=== PATIENT | male | born 1965 | race Caucasian/White ===

== ENCOUNTER 2019-04-28 10:01 | Outpatient (CLI) | payer BC ==
[2019-04-28 12:52] LABS: Basophils # (Auto) 0.1 K/mm3 (0.0-0.1); Eosinophils # (Auto) 0.3 K/mm3 (0.0-0.4); Eosinophils % (Auto) 6.8 % (0.0-4.3); Hematocrit 47.3 % (35.5-45.6); Hemoglobin 16.2 gm/dl (11.8-15.2); Lymphocytes # (Auto) 1.8 K/mm3 (1.2-5.4); Lymphocytes % (Auto) 35.6 % (13.4-35.0); Mean Corpuscular HGB Conc 34 % (32-34); Mean Corpuscular Volume 95 fl (84-94); Monocytes # (Auto) 0.3 K/mm3 (0.0-0.8); Monocytes % (Auto) 6.9 % (0.0-7.3); Platelet Count 311 K/mm3 (140-440); Red Blood Count 4.99 M/mm3 (3.65-5.03); Red Cell Distribution Width 13.5 % (13.2-15.2)
[2019-04-28 13:45] LABS: Alanine Aminotransferase 38 units/L (7-56); Albumin 4.7 g/dL (3.9-5); BUN/Creatinine Ratio 16; Blood Urea Nitrogen 11 mg/dL (9-20); Calcium 9.9 mg/dL (8.4-10.2); Chol/HDL Ratio 5.51 %; HDL Cholesterol 39 mg/dL (40-59); Hemolysis Index 6; LDL Cholesterol,Direct 131 mg/dL (50-130)
[2019-05-02 16:45] LABS: Vitamin D, 25-OH, D2 <4 ng/mL
== END 2019-04-28 10:02 | disposition home or self-care (01) ==
LOC: LAB 10:01
PROVIDERS: ATTEND Internal Medicine
DX: Z00.00 Encounter for general adult medical examination without abnormal findings (principal); Z13.1 Encounter for screening for diabetes mellitus; E78.5 Hyperlipidemia, unspecified; Z13.29 Encounter for screening for other suspected endocrine disorder; Z13.21 Encounter for screening for nutritional disorder; Z12.5 Encounter for screening for malignant neoplasm of prostate
CPT/HCPCS: 36415; 80053; 80061; 82306; 82607; 83036; 84153; 84443; 85025

== ENCOUNTER 2019-09-01 07:48 | Day surgery (SDC) | payer BC ==
[~2019-09-01 07:48] MED LIST: SODIUM CHLORIDE 0.9% 1000 ML 1,000 ML IV SCH
--- NOTE | 2019-09-01 08:43 | Anesthesia Consultation ---
Anesthesia Consult and Med Hx Date of service: 09/01/19 - Airway Anesthetic Teeth Evaluation: Good ROM Head & Neck: Adequate Mental/Hyoid Distance: Adequate Mallampati Class: Class II Intubation Access Assessment: Probably Good - Pulmonary Exam CTA: Yes - Cardiac Exam Cardiac Exam: RRR - Pre-Operative Health Status ASA Pre-Surgery Classification: ASA1 Proposed Anesthetic Plan: TIVA
--- NOTE | 2019-09-01 08:44 | Anesthesia Day of Surgery ---
Anesthesia Day of Surgery - Day of Surgery Patient Examined: Yes Patient H&P Reviewed: Yes Patient is NPO: Yes
[2019-09-01] MEDS ORDERED: propofoL 200 MG/20 ML VIAL IV ONE ×2 (10:19)
--- NOTE | 2019-09-01 10:48 | Procedure Note ---
Date of procedure: 09/01/19 Pre-op diagnosis: Colon Polyp Screening Post-op diagnosis: other (Normal Colon Mucosa (no colon Polyps or diverticular disease noted)/ Normal, Terminal Ileal Mucosa/ Mild to Moderate Internal hemorrhoid) Procedure: Screening Colonoscopy Anesthesia: MAC Surgeon: ADOLFO MEYERS Estimated blood loss: none Pathology: none Condition: stable
--- NOTE | 2019-09-01 11:13 | Operative Report ---
PROCEDURE: Colonoscopy. INDICATIONS: A 53-year-old gentleman in otherwise good health, who had a colonoscopy done as part of colon polyp screening. DESCRIPTION OF PROCEDURE: Procedure was done after getting informed consent with MAC anesthesia. Initial rectal exam was unremarkable. Instrument was passed through the rectum onto the cecum, which was identified by the ileocecal valve and appendiceal orifice. Visualization was fair to good. Terminal ileum was intubated showed normal mucosa. Cecum was also examined on the retroverted view. No additional pathology was noted. Cecum, ascending colon, transverse colon, descending colon, sigmoid as well as the rectum showed normal mucosa. There was no evidence of any polyps, colitis or diverticular disease. Rectum showed [id number] internal hemorrhoid on the retroverted view. There was no bleeding associated with the procedure. No complications associated with the procedure. ASSESSMENT: Colon polyp screening. No colon polyps noted. No diverticular disease noted. [id number] internal hemorrhoids. Normal terminal ileal mucosa. PLAN: Plan is to have the patient resume home medication. Follow up in the office in 1-2 weeks' time. Thank you for the kind referral. The procedure was done in the GI lab with assistance of the GI lab team, which included CHICHO Butt as well as Teressa gant and with assistance of anesthesia. JOB# [id number] SANJAY/KECIA
--- NOTE | 2019-09-01 11:17 | Post Anesthesia Evaluation ---
- Post Anesthesia Evaluation Patient Participated: Yes Airway Patent: Yes Stable Respiratory Function: Yes Nausea/Vomiting: No Temp > 96.8F: Yes Pain Manageable: Yes Adequeate Hydration: Yes Anesthesia Complications: No
[2019-09-01 11:56] VITALS: BP 125/78
== END 2019-09-01 07:49 | disposition home or self-care (01) ==
LOC: GIO 07:48
DX: Z12.11 Encounter for screening for malignant neoplasm of colon (principal); K64.8 Other hemorrhoids; Z90.49 Acquired absence of other specified parts of digestive tract; Z79.899 Other long term (current) drug therapy
CPT/HCPCS: 45378; J2704; J7030

== ENCOUNTER 2019-09-09 08:31 | Emergency (ER) | payer BC ==
[2019-09-09 08:36] VITALS: BP 145/93
--- NOTE | 2019-09-09 09:28 | Emergency Department Report ---
ED ENT HPI - General Chief complaint: Earache Stated complaint: LEFT EAR PAIN Time Seen by Provider: 09/09/19 08:54 Source: patient Mode of arrival: Ambulatory Limitations: No Limitations - History of Present Illness Initial comments: This is a 53-year-old male who presents to the emergency room with right ear pain for 2 days. Patient states it feels clogged and there is decreased hearing. Reports pain is worse when he get out of the shower. He denies using Q-tips or any other foreign object in the ear. He denies otorrhea, discharge, tinnitus, fever, or chills. MD complaint: ear pain (right) Onset/Timin -: days(s) Location: R ear Severity: moderate Severity scale (0 -10): 6 Quality: aching, other (Throbbing) Consistency: constant Improves with: none Worsens with: none Associated Symptoms: hearing loss. denies: fever, tinnitus, discharge from ear, rhinorrhea - Related Data Previous Rx's Medication Instructions Recorded Last Taken Type Ibuprofen [Motrin 600 MG tab] 600 mg PO Q8H PRN #30 tablet 04/08/18 Unknown Rx Amoxicillin [Trimox CAP] 500 mg PO BID #20 capsule 09/09/19 Unknown Rx Allergies Allergy/AdvReac Type Severity Reaction Status Date / Time No Known Allergies Allergy Unverified 04/07/18 20:37 ED Dental HPI - General Chief complaint: Earache Stated complaint: LEFT EAR PAIN Time Seen by Provider: 09/09/19 08:54 Source: patient Mode of arrival: Ambulatory Limitations: No Limitations - Related Data Previous Rx's Medication Instructions Recorded Last Taken Type Ibuprofen [Motrin 600 MG tab] 600 mg PO Q8H PRN #30 tablet 04/08/18 Unknown Rx Amoxicillin [Trimox CAP] 500 mg PO BID #20 capsule 09/09/19 Unknown Rx Allergies Allergy/AdvReac Type Severity Reaction Status Date / Time No Known Allergies Allergy Unverified 04/07/18 20:37 ED Review of Systems ROS: Stated complaint: LEFT EAR PAIN Other details as noted in HPI Constitutional: denies: chills, fever ENT: ear pain (Right ear). denies: throat pain, dental pain, hearing loss, epistaxis, congestion Respiratory: denies: cough, shortness of breath, wheezing Cardiovascular: denies: chest pain, palpitations Gastrointestinal: denies: abdominal pain, nausea, diarrhea Skin: denies: rash, lesions Neurological: denies: headache, weakness, paresthesias Psychiatric: denies: anxiety, depression ED Past Medical Hx - Past Medical History Previous Medical History?: Yes Additional medical history: elevated cholesterol - Surgical History Hx Cholecystectomy: Yes - Social History Smoking Status: Never Smoker Substance Use Type: None - Medications Home Medications: Home Medications Medication Instructions Recorded Confirmed Last Taken Type Ibuprofen [Motrin 600 MG tab] 600 mg PO Q8H PRN #30 tablet 04/08/18 Unknown Rx Amoxicillin [Trimox CAP] 500 mg PO BID #20 capsule 09/09/19 Unknown Rx ED Physical Exam - General Limitations: No Limitations General appearance: alert, in no apparent distress - ENT ENT exam: Present: normal orophraynx, mucous membranes moist. Absent: TM's normal bilaterally (Right TM cloudy, bulging, and immobile, TTP) - Respiratory Respiratory exam: Present: normal lung sounds bilaterally. Absent: respiratory distress - Cardiovascular Cardiovascular Exam: Present: regular rate, normal rhythm. Absent: systolic murmur, diastolic murmur, rubs, gallop - GI/Abdominal GI/Abdominal exam: Present: soft, normal bowel sounds - Extremities Exam Extremities exam: Present: normal inspection - Neurological Exam Neurological exam: Present: alert, oriented X3, normal gait - Psychiatric Psychiatric exam: Present: normal affect, normal mood - Skin Skin exam: Present: warm, dry, intact, normal color. Absent: rash ED Course Vital Signs 09/09/19 08:31 Temperature 98.6 F Pulse Rate 77 Respiratory 16 Rate Blood Pressure 145/93 O2 Sat by Pulse 99 Oximetry ED Medical Decision Making - Medical Decision Making This is a 53-year-old male that presents with right ear pain for 2 days. Patient is stable. Vitals normal. Exam and history most consistent with acute otitis media of right ear. I have a low suspicion at this time for mastoiditis, malignant otitis externa, herpes, or retained foreign body. Start amoxicillin, tylenol or ibuprofen for pain. Discussed plan with patient and he agreed with plan. Informed of signs and symptoms of allergic reaction and importance of giving benadryl immediately. Discharged home in stable condition with strict return instructions. Follow up with PCP in 24-72 hours. Critical care attestation.: If time is entered above; I have spent that time in minutes in the direct care of this critically ill patient, excluding procedure time. ED Disposition Clinical Impression: Otalgia of right ear Acute otitis media Qualifiers: Otitis media type: suppurative Laterality: right Recurrence: non-recurrent Spontaneous tympanic membrane rupture: without spontaneous rupture Qualified Code(s): H66.001 - Acute suppurative otitis media without spontaneous rupture of ear drum, right ear Disposition: TO HOME OR SELFCARE Is pt being admited?: No Condition: Stable Instructions: Otitis Media (ED) Additional Instructions: Give Tylenol or ibuprofen for pain every 6-8 hours. Take antibiotics as prescribed to avoid recurrence of the ear infection. Avoid high altitudes, may worsen the pain during ear infection. If symptoms do not improve within 2 to 3 days, then follow up with primary care doctor. Prescriptions: Amoxicillin [Trimox CAP] 500 mg PO BID #20 capsule Referrals: MARCELA MACK MD [Staff Physician] - 3-5 Days [facility] [Provider Group] - 3-5 Days [facility] [Outside] - 3-5 Days [facility] [Outside] - 3-5 Days Time of Disposition: 09:32
== END 2019-09-09 09:40 | disposition home or self-care (01) ==
LOC: ED 08:31
DX: H66.001 Acute suppurative otitis media without spontaneous rupture of ear drum, right ear (principal); E78.00 Pure hypercholesterolemia, unspecified; Z87.891 Personal history of nicotine dependence
CPT/HCPCS: 99282

== ENCOUNTER 2019-12-17 08:43 | Emergency (ER) | payer BC ==
--- NOTE | 2019-12-17 11:11 | Emergency Department Report ---
ED Chest Pain HPI - General Chief Complaint: Dyspnea/Respdistress Stated Complaint: SAUL Time Seen by Provider: 12/17/19 10:50 Source: patient Mode of arrival: Ambulatory Limitations: No Limitations - History of Present Illness Initial Comments: 53-year-old male with a past medical history of elevated cholesterol and previous cholecystectomy presents to the hospital complaining of shortness of breath and chest pain x4 days. Patient states symptoms are worse at night and has been unable to sleep. The last 3 to 4 days he was waking up every 3-4 hours with shortness of breath and chest pressure. Patient also feels like there is increased phlegm in his chest and throat but denies leg edema cough, fever, loss of sense of taste or smell, coronavirus exposure, has not been tested for coronavirus. Patient also denies chest pressure with exertion, nausea, vomiting, diaphoresis. Patient does not smoke cigarettes. 1 month ago his primary care doctor recommended that he have a sleep study test the patient has been unable to obtain the examination. Initial BP here today is elevated and patient denies a previous history of hypertension and has had previous BP measurements in normal range as per medical record. - Related Data Previous Rx's Medication Instructions Recorded Last Taken Type Ibuprofen [Motrin 600 MG tab] 600 mg PO Q8H PRN #30 tablet 04/08/18 Unknown Rx Amoxicillin [Trimox CAP] 500 mg PO BID #20 capsule 09/09/19 Unknown Rx Allergies Allergy/AdvReac Type Severity Reaction Status Date / Time No Known Allergies Allergy Unverified 04/07/18 20:37 Heart Score - HEART Score History: Slightly suspicious EKG: Normal Age: 45-65 Risk factors: 1-2 risk factors Troponin: < normal limit HEART Score: 2 ED Review of Systems ROS: Stated complaint: SAUL Other details as noted in HPI Comment: All other systems reviewed and negative ED Past Medical Hx - Past Medical History Previous Medical History?: Yes Additional medical history: elevated cholesterol - Surgical History Past Surgical History?: Yes Hx Cholecystectomy: Yes - Social History Smoking Status: Never Smoker Substance Use Type: None - Medications Home Medications: Home Medications Medication Instructions Recorded Confirmed Last Taken Type Ibuprofen [Motrin 600 MG tab] 600 mg PO Q8H PRN #30 tablet 04/08/18 Unknown Rx Amoxicillin [Trimox CAP] 500 mg PO BID #20 capsule 09/09/19 Unknown Rx ED Physical Exam - General Limitations: No Limitations - Other Other exam information: General: No acute distress Head: Atraumatic Eyes: normal appearance ENT: Moist mucous membranes, posterior pharynx normal without exudates, or edema Neck: Normal appearance, no midline tenderness Chest: Clear to auscultation bilaterally, mild rhonchi left chest few no wheezes, rales,. CV: Regular rate and rhythm Abdomen: Soft, normal bowel sounds, nontender, nondistended, no rebound or guarding Back: Normal inspection Extremity: Normal inspection, full range of motion, no calf tenderness or leg edema Neuro: Alert O x 3, no facial asymmetry, speech clear, no gross motor sensory deficit Psych: Appropriate behavior Skin: No rash ED Course Vital Signs 12/17/19 12/17/19 08:46 11:41 Temperature 97.6 F Pulse Rate 68 51 L Respiratory 16 16 Rate Blood Pressure 162/107 Blood Pressure 148/80 [Left] O2 Sat by Pulse 97 Oximetry TJ score - Tj Score Age > 65: (0) No Aspirin use within the Past 7 Days: (0) No 3 or more CAD Risk Factors: (0) No 2 or more Angina events in past 24 hrs: (0) No Known CAD with more than 50% Stenosis: (0) No Elevated Cardiac Markers: (0) No ST Deviation Greater than 0.5mm: (0) No TJ Score: 0 ED Medical Decision Making - Lab Data Result diagrams: 12/17/19 11:11 12/17/19 11:11 Lab Results 12/17/19 12/17/19 Range/Units 11:11 11:11 WBC 6.2 (4.5-11.0) K/mm3 RBC 4.69 (3.65-5.03) M/mm3 Hgb 15.5 H (11.8-15.2) gm/dl Hct 44.8 (35.5-45.6) % MCV 96 H (84-94) fl MCH 33 H (28-32) pg MCHC 35 H (32-34) % RDW 14.4 (13.2-15.2) % Plt Count 307 (140-440) K/mm3 Lymph % (Auto) 35.1 H (13.4-35.0) % [place] % (Auto) 6.4 (0.0-7.3) % Eos % (Auto) 4.1 (0.0-4.3) % Baso % (Auto) 0.9 (0.0-1.8) % Lymph # 2.2 (1.2-5.4) K/mm3 [place] # 0.4 (0.0-0.8) K/mm3 Eos # 0.3 (0.0-0.4) K/mm3 Baso # 0.1 (0.0-0.1) K/mm3 Seg Neutrophils % 53.5 (40.0-70.0) % Seg Neutrophils # 3.3 (1.8-7.7) K/mm3 Sodium 142 (137-145) mmol/L Potassium 4.3 (3.6-5.0) mmol/L Chloride 104.0 (98-107) mmol/L Carbon Dioxide 25 (22-30) mmol/L Anion Gap 17 mmol/L BUN 13 (9-20) mg/dL Creatinine 0.7 L (0.8-1.3) mg/dL Estimated GFR > 60 ml/min BUN/Creatinine Ratio 19 % Glucose 98 (75-100) mg/dL Calcium 9.6 (8.4-10.2) mg/dL Troponin T < 0.010 (0.00-0.029) ng/mL NT-Pro-B Natriuret Pep 33.15 (0-900) pg/mL - EKG Data -: EKG Interpreted by [facility] EKG shows normal: sinus rhythm, ST-T waves (no stemi) Rate: bradycardia (48) - Radiology Data Radiology results: report reviewed CHEST 2 VIEWS INDICATION / CLINICAL INFORMATION: sob. COMPARISON: None available. FINDINGS: SUPPORT DEVICES: None. HEART / MEDIASTINUM: No significant abnormality. LUNGS / PLEURA: No significant pulmonary or pleural abnormality. No pneumothorax. ADDITIONAL FINDINGS: No significant additional findings. IMPRESSION: No acute cardiopulmonary abnormality - Medical Decision Making Patient's ED work-up unremarkable with EKG only significant for sinus bradycardia without ischemic findings, normal chest x-ray, normal CBC, BMP, and negative troponin. Patient's BP improved spontaneously without intervention. Patient symptoms very atypical for ACS. He more or less complains of phlegm in his throat and waking up in the middle night while sleeping short of breath and feeling like something is stuck in his throat. He has been recommended to see a specialist to have an outpatient sleep study however, this has not been ryann roved by his insurance and therefore he came to the ED. He also states he has a coming schedule a tele-visit with his physician. At this time I have not identified any signs of airway obstruction, stridor, hypoxia, CAD, pneumonia, or infection. Patient is breathing comfortably without distress and does not endorse chest pain with exertion or dyspnea on exertion. Patient will be discharged home and encouraged to continue his outpatient work-up with his physician. Critical Care Time: No Critical care attestation.: If time is entered above; I have spent that time in minutes in the direct care of this critically ill patient, excluding procedure time. ED Disposition Clinical Impression: Atypical chest pain, Sleeping difficulties, Phlegm in throat Disposition: TO HOME OR SELFCARE Is pt being admited?: No Does the pt Need Aspirin: No Condition: Stable Instructions: Chest Pain (ED) Additional Instructions: It is very important that you follow-up with your physician to continue outpatient work-up for your suspected sleep apnea/difficulty breathing while sleeping. Keep your follow-up visit as scheduled this week. Return if symptoms worsen as indicated by your discharge instructions Es muy importante que malou un seguimiento con worley mdico para continuar el trabajo ambulatorio para worley sospecha de apnea del sueo/dificultad para respirar mientras duerme. Mantenga worley visita de seguimiento segn lo programado esta semana. Regrese si los sntomas empeoran segn lo indicado por las instrucciones de lolly Referrals: PRIMARY CAREMD [Primary Care Provider] - 3-5 Days Time of Disposition: 12:20 Print Language: ANDORRAN
--- NOTE | 2019-12-17 11:23 | XRay Report ---
CHEST 2 VIEWS INDICATION / CLINICAL INFORMATION: sob. COMPARISON: None available. FINDINGS: SUPPORT DEVICES: None. HEART / MEDIASTINUM: No significant abnormality. LUNGS / PLEURA: No significant pulmonary or pleural abnormality. No pneumothorax. ADDITIONAL FINDINGS: No significant additional findings. IMPRESSION: No acute cardiopulmonary abnormality. Signer Name: Wan Henry MD Signed: 12/17/2019 11:19 AM Workstation Name: [id number]
[2019-12-17 11:40] LABS: Basophils # (Auto) 0.1 K/mm3 (0.0-0.1); Basophils % (Auto) 0.9 % (0.0-1.8); Eosinophils # (Auto) 0.3 K/mm3 (0.0-0.4); Eosinophils % (Auto) 4.1 % (0.0-4.3); Hematocrit 44.8 % (35.5-45.6); Hemoglobin 15.5 gm/dl (11.8-15.2); Lymphocytes # (Auto) 2.2 K/mm3 (1.2-5.4); Lymphocytes % (Auto) 35.1 % (13.4-35.0); Mean Corpuscular HGB Conc 35 % (32-34); Mean Corpuscular Volume 96 fl (84-94); Monocytes # (Auto) 0.4 K/mm3 (0.0-0.8); Monocytes % (Auto) 6.4 % (0.0-7.3); Platelet Count 307 K/mm3 (140-440); Red Blood Count 4.69 M/mm3 (3.65-5.03); Red Cell Distribution Width 14.4 % (13.2-15.2)
[2019-12-17 11:41] VITALS: BP 148/80
[2019-12-17 12:07] LABS: BUN/Creatinine Ratio 19; Blood Urea Nitrogen 13 mg/dL (9-20); Calcium 9.6 mg/dL (8.4-10.2); Hemolysis Index 10
== END 2019-12-17 12:31 | disposition home or self-care (01) ==
LOC: ED 08:43
DX: R07.89 Other chest pain (principal); R06.01 Orthopnea; E78.00 Pure hypercholesterolemia, unspecified; Z90.49 Acquired absence of other specified parts of digestive tract
CPT/HCPCS: 36415; 71046; 80048; 83880; 84484; 85025; 93005

== ENCOUNTER 2020-01-05 08:53 | Outpatient (CLI) | payer BC ==
[2020-01-05 09:39] LABS: Chol/HDL Ratio 4.86 %
== END 2020-01-05 08:54 | disposition home or self-care (01) ==
LOC: LAB 08:53
PROVIDERS: ATTEND Internal Medicine
DX: E78.5 Hyperlipidemia, unspecified (principal); R73.03 Prediabetes
CPT/HCPCS: 36415; 80061; 83036

== ENCOUNTER 2020-03-26 07:44 | Emergency (ER) | payer BC ==
[2020-03-26 08:11] VITALS: BP 172/94
--- NOTE | 2020-03-26 09:25 | Emergency Department Report ---
ED General Adult HPI - General Chief complaint: Dyspnea/Respdistress Stated complaint: BREATHING PROBLEM Time Seen by Provider: 03/26/20 09:07 Source: patient Mode of arrival: Ambulatory Limitations: No Limitations - History of Present Illness Initial comments: Is a very pleasant 54-year-old male with a past medical history of hyperlipidemia and cholecystectomy who presents to the emergency department chief complaint of nasal congestion, sore throat and a feeling that his nose and throat were closing specifically when he lies down for bed. He reports this has been ongoing for greater than 6 months. He was seen in the ER in December for same complaint had a work-up that was unremarkable and subsequently referred to his primary care doctor. He states his primary care doctor then referred him to a sleep specialist as well as an ENT but his insurance lapsed and he was unable to follow-up for these tests. He reports he will wake up out of his sleep feeling as if he is having a hard time breathing. He will feel as his throat is hurting and is if it is closing. He also feels as if he lays on his left side his right nostril will start to close if he lays on his right side his left nostril started to close. He reports some nasal congestion. He reports increased phlegm in his throat. He denies any associated fever, chills, night sweats, headache, dizziness, blurry vision, nausea, vomit, diarrhea, chest pain, shortness of breath, weakness or any other associated symptoms. He denies any loss of taste or smell, diarrhea, coronavirus exposure. - Related Data Previous Rx's Medication Instructions Recorded Last Taken Type Ibuprofen [Motrin 600 MG tab] 600 mg PO Q8H PRN #30 tablet 04/08/18 Unknown Rx Amoxicillin [Trimox CAP] 500 mg PO BID #20 capsule 09/09/19 Unknown Rx Amoxicillin/Potassium Clav 1 each PO BID #14 tablet 03/26/20 Unknown Rx [Augmentin 875-125 Tablet] Omeprazole 20 mg PO DAILY #30 tab. 03/26/20 Unknown Rx methylPREDNISolone [Medrol 4MG 4 mg PO ONCE #1 tab.ds.pk 03/26/20 Unknown Rx DOSEPAK (21 tabs)] Allergies Allergy/AdvReac Type Severity Reaction Status Date / Time No Known Allergies Allergy Unverified 04/07/18 20:37 ED Review of Systems ROS: Stated complaint: BREATHING PROBLEM Other details as noted in HPI Comment: All other systems reviewed and negative Constitutional: denies: chills, fever Eyes: denies: eye pain, eye discharge, vision change ENT: as per HPI, throat pain, congestion. denies: ear pain Respiratory: denies: cough, shortness of breath, wheezing Cardiovascular: denies: chest pain, palpitations Endocrine: no symptoms reported Gastrointestinal: denies: abdominal pain, nausea, diarrhea Genitourinary: denies: urgency, dysuria Musculoskeletal: denies: back pain, joint swelling, arthralgia Skin: denies: rash, lesions Neurological: denies: headache, weakness, paresthesias Psychiatric: denies: anxiety, depression Hematological/Lymphatic: denies: easy bleeding, easy bruising ED Past Medical Hx - Past Medical History Previous Medical History?: Yes Additional medical history: elevated cholesterol - Surgical History Past Surgical History?: Yes Hx Cholecystectomy: Yes - Social History Smoking Status: Never Smoker Substance Use Type: None - Medications Home Medications: Home Medications Medication Instructions Recorded Confirmed Last Taken Type Ibuprofen [Motrin 600 MG tab] 600 mg PO Q8H PRN #30 tablet 04/08/18 Unknown Rx Amoxicillin [Trimox CAP] 500 mg PO BID #20 capsule 09/09/19 Unknown Rx Amoxicillin/Potassium Clav 1 each PO BID #14 tablet 03/26/20 Unknown Rx [Augmentin 875-125 Tablet] Omeprazole 20 mg PO DAILY #30 tab.rap.dr 03/26/20 Unknown Rx methylPREDNISolone [Medrol 4MG 4 mg PO ONCE #1 tab.ds.pk 03/26/20 Unknown Rx DOSEPAK (21 tabs)] ED Physical Exam - General Limitations: No Limitations General appearance: alert, in no apparent distress - Head Head exam: Present: atraumatic, normocephalic - Eye Eye exam: Present: normal appearance, PERRL, EOMI Pupils: Present: normal accommodation - ENT ENT exam: Present: normal exam, mucous membranes moist, TM's normal bilaterally, normal external ear exam. Absent: normal orophraynx (There is erythema the posterior pharynx with some postnasal drip, there is hyperemia to the nasal turbinates bilaterally.) - Neck Neck exam: Present: normal inspection, full ROM. Absent: tenderness, meningismus - Respiratory Respiratory exam: Present: normal lung sounds bilaterally. Absent: respiratory distress, wheezes, rales, rhonchi, stridor, accessory muscle use - Cardiovascular Cardiovascular Exam: Present: regular rate, normal rhythm, normal heart sounds. Absent: systolic murmur, diastolic murmur, rubs, gallop - GI/Abdominal GI/Abdominal exam: Present: soft, normal bowel sounds. Absent: distended, tenderness, guarding, rebound, rigid - Rectal Rectal exam: Present: deferred - Extremities Exam Extremities exam: Present: normal inspection, full ROM, normal capillary refill. Absent: tenderness, calf tenderness (No calf posterior tenderness bilaterally, negative Homans' sign bilaterally) - Back Exam Back exam: Present: normal inspection, full ROM. Absent: tenderness, CVA tenderness (R), CVA tenderness (L) - Neurological Exam Neurological exam: Present: alert, oriented X3, CN II-XII intact, normal gait - Psychiatric Psychiatric exam: Present: normal affect, normal mood - Skin Skin exam: Present: warm, dry, intact, normal color. Absent: rash ED Course Vital Signs 03/26/20 08:09 Temperature 97.9 F Pulse Rate 72 Respiratory 16 Rate Blood Pressure 172/94 O2 Sat by Pulse 99 Oximetry - Reevaluation(s) Reevaluation #1: 03/26/20 09:24 Patient is nontoxic in no acute distress. He is well-appearing. This is a chronic issue that has been ongoing for the past many months however he has been unable to see the specialist referred to for a sleep study. Clinically the patient's symptoms are consistent with a sinusitis with postnasal drip. I did order a chest x-ray and neck soft tissue x-ray. The patient had been seen previously and had an ischemic work-up due to his nonspecific complaints which was unremarkable. He has no chest pain, no shortness of breath and complains only feels as if he is having a hard time breathing because his throat has increased phlegm as well as in his nose. Suspect this could be secondary to environmental changes in the weather versus bacterial infection of the sinuses. ED Medical Decision Making - Radiology Data Radiology results: report reviewed, image reviewed XRay Report Signed Patient: MANJEET SNELL MR#: [id number] : 1965 Acct:[id number] Age/Sex: 54 / M ADM Date: 03/26/20 Loc: ED Attending Dr: Ordering Physician: ADRIANNE GARCIA Date of Service: 03/26/20 Procedure(s): XR neck soft tissue Accession Number(s): [id number] cc: ADRIANNE GARCIA Fluoro Time In Minutes: NECK SOFT TISSUE 2 VIEW(S) INDICATION / CLINICAL INFORMATION: throat pain COMPARISON: None available. FINDINGS: EPIGLOTTIS: No significant abnormality. RETROPHARYNGEAL SOFT TISSUES: No significant abnormality. AIRWAY: No significant abnormality. RADIOPAQUE FOREIGN BODY: None. SKELETAL SYSTEM: No significant abnormality. ADDITIONAL FINDINGS: None. IMPRESSION: 1. No significant abnormality. Signer Name: Mika Solis MD Signed: 03/26/2020 9:53 AM Workstation Name: [id number] Transcribed By: BRO Dictated By: Mika Solis MD Electronically Authenticated By: Mika Solis MD Signed Date/Time: 03/26/20 0953 XRay Report Signed Patient: MANJEET NSELL MR#: [id number] : 1965 Acct:[id number] Age/Sex: 54 / M ADM Date: 03/26/20 Loc: ED Attending Dr: Ordering Physician: ADRIANNE GARCIA Date of Service: 03/26/20 Procedure(s): XR chest routine 2V Accession Number(s): [id number] cc: ADRIANNE GARCIA Fluoro Time In Minutes: CHEST 2 VIEWS INDICATION / CLINICAL INFORMATION: shortness of breath. COMPARISON: Chest 2 views from 12/17/2019. FINDINGS: SUPPORT DEVICES: None. HEART / MEDIASTINUM: No significant abnormality. LUNGS / PLEURA: No significant pulmonary or pleural abnormality. No pneumothorax. ADDITIONAL FINDINGS: No significant additional findings. IMPRESSION: 1. No acute abnormality of the chest. Signer Name: Mika Solis MD Signed: 03/26/2020 9:43 AM Workstation Name: [id number] Transcribed By: BRO Dictated By: Mika Solis MD Electronically Authenticated By: Mika Solis MD Signed Date/Time: 03/26/20 0943 - Medical Decision Making Patient nontoxic in no acute distress. Vital signs are stable. His x-ray of his neck soft tissue and chest were unremarkable. I will treat him with short course of an oral steroid, short course of Augmentin for his sinuses and recommend that he follow-up with his primary care doctor. Instructed to return the emerge when he develops any change or worsening symptoms. He had no signs of any airway obstruction, no stridor, no increased work of breathing, vital signs and imaging was unremarkable. He verbalized understand the diagnosis, treatment plan and follow-up instructions all his questions were answered. - Differential Diagnosis Sinusitis, GERD, pharyngitis Critical care attestation.: If time is entered above; I have spent that time in minutes in the direct care of this critically ill patient, excluding procedure time. ED Disposition Clinical Impression: Sinusitis Qualifiers: Sinusitis location: frontal Chronicity: acute Recurrence: recurrent Qualified Code(s): J01.11 - Acute recurrent frontal sinusitis Disposition: TO HOME OR SELFCARE Is pt being admited?: No Condition: Stable Instructions: Sinusitis, Adult, [id number] Prescriptions: Amoxicillin/Potassium Clav [Augmentin 875-125 Tablet] 1 each PO BID #14 tablet methylPREDNISolone [Medrol 4MG DOSEPAK (21 tabs)] 4 mg PO ONCE #1 tab.ds.pk Omeprazole 20 mg PO DAILY #30 tab.rap.dr Referrals: MARCELA MACK MD [Staff Physician] - 3-5 Days Forms: Work/School Release Form(ED)
--- NOTE | 2020-03-26 09:47 | XRay Report ---
CHEST 2 VIEWS INDICATION / CLINICAL INFORMATION: shortness of breath. COMPARISON: Chest 2 views from 12/17/2019. FINDINGS: SUPPORT DEVICES: None. HEART / MEDIASTINUM: No significant abnormality. LUNGS / PLEURA: No significant pulmonary or pleural abnormality. No pneumothorax. ADDITIONAL FINDINGS: No significant additional findings. IMPRESSION: 1. No acute abnormality of the chest. Signer Name: Mika Solis MD Signed: 03/26/2020 9:43 AM Workstation Name: [id number]
--- NOTE | 2020-03-26 09:58 | XRay Report ---
NECK SOFT TISSUE 2 VIEW(S) INDICATION / CLINICAL INFORMATION: throat pain COMPARISON: None available. FINDINGS: EPIGLOTTIS: No significant abnormality. RETROPHARYNGEAL SOFT TISSUES: No significant abnormality. AIRWAY: No significant abnormality. RADIOPAQUE FOREIGN BODY: None. SKELETAL SYSTEM: No significant abnormality. ADDITIONAL FINDINGS: None. IMPRESSION: 1. No significant abnormality. Signer Name: Mika Solis MD Signed: 03/26/2020 9:53 AM Workstation Name: [email or web address] [id number]
== END 2020-03-26 10:43 | disposition home or self-care (01) ==
LOC: ED 07:44
DX: J32.9 Chronic sinusitis, unspecified (principal); E78.5 Hyperlipidemia, unspecified; E78.00 Pure hypercholesterolemia, unspecified; Z79.899 Other long term (current) drug therapy; Z90.49 Acquired absence of other specified parts of digestive tract
CPT/HCPCS: 70360; 71046

== ENCOUNTER 2020-05-17 09:34 | Outpatient (CLI) | payer OTHER ==
[2020-05-17 09:56] LABS: Basophils % (Auto) 0.6 % (0.0-1.8); Eosinophils # (Auto) 0.3 K/mm3 (0.0-0.4); Eosinophils % (Auto) 5.9 % (0.0-4.3); Hematocrit 45.8 % (35.5-45.6); Hemoglobin 15.8 gm/dl (11.8-15.2); Lymphocytes # (Auto) 2.1 K/mm3 (1.2-5.4); Lymphocytes % (Auto) 42.6 % (13.4-35.0); Mean Corpuscular HGB Conc 35 % (32-34); Mean Corpuscular Volume 93 fl (84-94); Monocytes # (Auto) 0.3 K/mm3 (0.0-0.8); Monocytes % (Auto) 6.4 % (0.0-7.3); Platelet Count 277 K/mm3 (140-440); Red Blood Count 4.91 M/mm3 (3.65-5.03); Red Cell Distribution Width 14.5 % (13.2-15.2)
[2020-05-17 10:17] LABS: Alanine Aminotransferase 34 units/L (7-56); Albumin 4.3 g/dL (3.9-5); Blood Urea Nitrogen 10 mg/dL (9-20); Calcium 9.2 mg/dL (8.4-10.2); Chol/HDL Ratio 4.93 %; HDL Cholesterol 43 mg/dL (40-59); Hemolysis Index 12; LDL Cholesterol,Direct 130 mg/dL (50-130)
[2020-05-17 10:18] LABS: BUN/Creatinine Ratio 14
== END 2020-05-17 09:35 | disposition home or self-care (01) ==
LOC: LAB 09:34
PROVIDERS: ATTEND Internal Medicine
DX: Z00.00 Encounter for general adult medical examination without abnormal findings (principal); R73.03 Prediabetes; E78.5 Hyperlipidemia, unspecified; Z13.29 Encounter for screening for other suspected endocrine disorder; E55.9 Vitamin D deficiency, unspecified; R39.11 Hesitancy of micturition; N52.9 Male erectile dysfunction, unspecified
CPT/HCPCS: 36415; 80053; 80061; 83036; 84153; 84403; 84443; 85025

== ENCOUNTER 2020-09-27 08:54 | Outpatient (CLI) | payer OTHER ==
[2020-09-27 09:59] LABS: Chol/HDL Ratio 4.97 %
== END 2020-09-27 08:55 | disposition home or self-care (01) ==
LOC: LAB 08:54
PROVIDERS: ATTEND Internal Medicine
DX: E78.5 Hyperlipidemia, unspecified (principal); R73.03 Prediabetes
CPT/HCPCS: 36415; 80061; 83036

== ENCOUNTER 2021-02-21 08:51 | Outpatient (CLI) | payer OTHER ==
[2021-02-21 09:34] LABS: Chol/HDL Ratio 5.06 %
== END 2021-02-21 08:52 | disposition home or self-care (01) ==
LOC: LAB 08:51
PROVIDERS: ATTEND Internal Medicine
DX: E78.5 Hyperlipidemia, unspecified (principal); R73.03 Prediabetes
CPT/HCPCS: 36415; 80061; 83036

== ENCOUNTER 2021-06-20 09:55 | Outpatient (CLI) | payer OTHER ==
[2021-06-20 11:00] LABS: Alanine Aminotransferase 29 units/L (7-56); Albumin 4.9 g/dL (3.9-5); Blood Urea Nitrogen 14 mg/dL (9-20); Calcium 10.1 mg/dL (8.4-10.2); HDL Cholesterol 48 mg/dL (40-59); Hemolysis Index 6; LDL Cholesterol,Direct 162 mg/dL (50-130)
[2021-06-20 11:05] LABS: Basophils # (Auto) 0.1 K/mm3 (0.0-0.1); Eosinophils # (Auto) 0.3 K/mm3 (0.0-0.4); Lymphocytes # (Auto) 2.2 K/mm3 (1.2-5.4); Lymphocytes % (Auto) 36.5 % (13.4-35.0); Mean Corpuscular HGB Conc 36 % (32-34); Mean Corpuscular Volume 93 fl (84-94); Monocytes # (Auto) 0.4 K/mm3 (0.0-0.8); Monocytes % (Auto) 6.2 % (0.0-7.3); Platelet Count 292 K/mm3 (140-440); Red Blood Count 4.83 M/mm3 (3.65-5.03); Red Cell Distribution Width 13.7 % (13.2-15.2)
[2021-06-20 11:23] LABS: BUN/Creatinine Ratio 20
[2021-06-20 11:54] LABS: Hemoglobin 16.3 gm/dl (11.8-15.2)
== END 2021-06-20 09:56 | disposition home or self-care (01) ==
LOC: LAB 09:55
PROVIDERS: ATTEND Internal Medicine
DX: Z00.00 Encounter for general adult medical examination without abnormal findings (principal); E78.5 Hyperlipidemia, unspecified; R53.83 Other fatigue; E55.9 Vitamin D deficiency, unspecified; R73.03 Prediabetes; R35.0 Frequency of micturition
CPT/HCPCS: 36415; 80053; 80061; 82306; 84153; 84443; 85025

== ENCOUNTER 2021-10-30 08:28 | Outpatient (CLI) | payer OTHER ==
[2021-10-30 12:31] LABS: Chol/HDL Ratio 4.59 %
== END 2021-10-30 08:29 | disposition home or self-care (01) ==
LOC: LABHHL 08:28
PROVIDERS: ATTEND Internal Medicine
DX: R73.9 Hyperglycemia, unspecified (principal); E78.5 Hyperlipidemia, unspecified
CPT/HCPCS: 36415; 80061; 83036